=== PATIENT | female | born 2005 | race Caucasian/White ===

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

== ENCOUNTER 2024-02-14 18:18 | Emergency (ER) | payer BC, SELFPAY ==
[2024-02-14 18:26] VITALS: BP 114/66; PULSE 101; RESP 16; TEMP 36.8; O2SAT 99
--- NOTE | 2024-02-14 18:50 | ED.URI ---
HPI - URI/Sore Throat General Chief Complaint: Upper Respiratory Infection Stated Complaint: diarrhea/headache/body aches Time Seen by Provider: 02/14/24 18:36 Source: patient and RN notes reviewed Mode of arrival: ambulatory Limitations: no limitations History of Present Illness HPI Narrative: Patient presents today with a 2 day history of diarrhea, headache, body aches. She reports the diarrhea is better today than yesterday. Denies blood or mucus in the stool. Ports the headache is slightly worse. She did have some abdominal pain yesterday, but this has since mostly resolved. She has taken some antidiarrhea medication with relief. Denies upper respiratory symptoms to include cough, congestion, rhinorrhea, fever. No recent travel or known sick contacts. Related Data Home Medications Medication Instructions Recorded Confirmed No Home Medications 04/29/22 02/14/24 Allergies Allergy/AdvReac Type Severity Reaction Status Date / Time Penicillins Allergy Rash Verified 02/14/24 18:30 Review of Systems Review of Systems: CONSTITUTIONAL: Denies fever, chills, or sweats.+ body EYES: Denies visual changes, redness, or discharge. ENT: Denies rhinorrhea, congestion, sore throat, or otalgia. CARDIOVASCULAR: Denies chest pain, palpitations, or edema. RESPIRATORY: Denies cough or dyspnea. GASTROINTESTINAL: Denies abdominal pain, nausea, vomiting. + diarrhea GENITOURINARY: Denies dysuria or hematuria. SKIN: Denies rash, itching, or wounds. MUSCULOSKELETAL: Denies back pain, joint pain, or myalgia. NEUROLOGIC: Denies numbness, tingling, or weakness.+ headache PSYCH: Denies depression or anxiety. [facility] Past Medical History Medical History Depression Surgical History Surgical History No history of previous surgery Family History Family History Other No significant family history Social History Social History Smoking status: Never smoker Alcohol intake: never Substance use: never Living arrangements: with family Occupation/Education: student Gender identity (if verbalized by the patient): Female Comments At time of signature, I have reviewed and agree with nursing past medical, surgical, social and family history unless otherwise noted. Please see nursing chart for further information. There is no relevant family history pertinent to the presenting complaint Exam Narrative: GENERAL: Well-appearing, well-nourished, and in no acute distress. HEAD: Normocephalic, atraumatic. EYES: EOMI. No redness or drainage. Conjunctivae normal. ENT: Mucous membranes pink and moist. NECK: Normal AROM. Supple. No lymphadenopathy. CHEST: No respiratory distress. Clear to auscultation. HEART: Regular rate and rhythm. No murmur appreciated. ABDOMEN: Soft, nontender, nondistended, normal active bowel sounds. EXTREMITIES: Normal range of motion. No edema. SKIN: Warm, dry, no rash. Capillary refill normal. Normal skin turgor. NEURO: No focal deficits. Alert and oriented x3. Gait steady. PSYCH: Normal affect. No signs of depression or anxiety. Course Course Level of Care: Express Care Visit Vital Signs Vital signs: Vital Signs Temperature 98.2 F 02/14/24 18:26 Pulse Rate 101 H 02/14/24 18:26 Respiratory Rate 16 02/14/24 18:26 Blood Pressure 114/66 02/14/24 18:26 Pulse Oximetry 99 02/14/24 18:26 Oxygen Delivery Room Air 02/14/24 18:26 Temperature 98.2 F 02/14/24 18:26 Pulse Rate 101 H 02/14/24 18:26 Respiratory Rate 16 02/14/24 18:26 Blood Pressure 114/66 02/14/24 18:26 Pulse Oximetry 99 02/14/24 18:26 Oxygen Delivery Room Air 02/14/24 18:26 Reviewed MDM - URI/Sore Throat MDM Narrative Medical decision
[2024-02-14 19:00] LABS: EDINFLUASCREEN Negative; EDINFLUBSCREEN Negative
== END 2024-02-14 19:18 | disposition home or self-care (01) ==
PROVIDERS: Emergency Provider Nurse Practitioner
DX: R19.7 Diarrhea, unspecified (principal); Z20.822 Contact with and (suspected) exposure to COVID-19
CPT/HCPCS: 87426; 87804; 99213; G0463

== ENCOUNTER 2024-07-25 16:56 | Emergency (ER) | payer BC, SELFPAY ==
--- NOTE | 2024-07-25 16:57 | ED.FEMALEGU ---
HPI - Female Genitourinary General Chief complaint: Unspecified Stated complaint: test Time Seen by Provider: 07/25/24 17:05 Source: patient, RN notes reviewed and old records reviewed Mode of arrival: ambulatory Limitations: no limitations History of Present Illness HPI Narrative: 19-year-old female presents to the [facility] requesting a test. Reports last menstrual period was 2 weeks ago which she reports is normal. Took a home test yesterday, reports negative. States that is morning she took a test and had a partial faint line. Patient states that she has had unprotected sex, has felt nauseous and that is why she took a test Related Data Home Medications ?Medication ?Instructions ?Recorded ?Confirmed ?Last Taken ?Type No Home Medications 04/29/22 07/25/24 Unknown History Allergies Allergy/AdvReac Type Severity Reaction Status Date / Time Penicillins Allergy Rash Verified 07/25/24 17:03 Review of Systems Review of Systems: All systems reviewed & are unremarkable except as noted in HPI and below Constitutional: Constitutional: Reports no additional constitutional complaints ENT: Reports system reviewed and no additional complaints, except as documented Cardiovascular: Cardiovascular: Reports no additional cardiovascular complaints, Denies chest pain and Denies dyspnea Respiratory: Respiratory: Reports no additional respiratory complaints, Denies chest congestion, Denies cough and Denies dyspnea Musculoskeletal: Musculoskeletal: Reports no additional musculoskeletal complaints Integumentary/Breasts: Skin/Breast: Reports system reviewed and no additional complaints, except as docu PMFSH Past Medical History Medical History Depression Surgical History Surgical History No history of previous surgery Family History Family History Other No significant family history Social History Social History Smoking status: Never smoker Alcohol intake: never Substance use: never Living arrangements: with family Occupation/Education: student Gender identity (if verbalized by the patient): Female Comments At the time of my signature, I reviewed and agree with the nursing past medical, surgical, social, and family history. There is no relevant family history pertinent to the patient complaint. Exam Const: General: cooperative, healthy appearing, comfortable, no acute distress, well developed, alert and well nourished Nutritional Appearance: well nourished Orientation/consciousness: patient oriented x3 Limitations: no limitations HENMT: Head: normal to inspection Face and sinus: normal facial exam and face symmetric Eyes: General: appearance normal, both eyes and all related structures Neck: Neck: normal visual inspection, full ROM, no lymphadenopathy and no meningeal signs Chest: Chest palpation & inspection: normal inspection of the chest Resp: Effort & Inspection: normal respiratory effort and able to speak in complete sentences Cardio: Rate: regular rate Skin: General skin exam: normal color and no rashes or lesions noted Neuro: General: patient oriented x3, gait normal, moves all extremities and no meningeal signs Cognition (Neuro): normal cognition Speech: normal speech Gait exam (Neuro): Normal gait present Extrem: General: normal to inspection, full ROM, capillary refill normal and normal gait Psych: Appearance: grossly normal and well kempt Mental Status: mental status grossly normal Speech and movement: Normal speech and movement present and Clear speech present Affect: normal affect Attitude: cooperative Course Course Level of Care: Express Care Visit Vital Signs Vital signs: Vital Signs Temperature 99.1 F 07/25/24 17:01 Pulse Rate 95 07/25/24 17:01 Respiratory Rate 16 07/25/24 17:01 Blood Pressure 113/61 07/25/24 17:01 Pulse Oximetry 100 07/25/24 17:01 Oxygen Delivery Room Air 07/25/24 17:01 Temperature 99.1 F 07/25/24 17:01 Pulse Rate 95 07/25/24 17:01 Respiratory Rate 16 07/25/24 17:01 Blood Pressure 113/61 07/25/24 17:01 Pulse Oximetry 100 07/25/24 17:01 Oxygen Delivery Room Air 07/25/24 17:01 Reviewed MDM - Female Genitourinary MDM Narrative Medical decision making narrative: Patient is sitting in exam room. Nontoxic, vitals stable. Patient is in no acute distress. Patient presents requesting a test Urine test is negative Patient appropriate for outpatient treatment and follow-up Discharge instructions reviewed with patient, as well as provided in writing per nursing staff. The instructions also include specific and strict return/GO TO THE ER as well as f/u information. All questions have been answered, and the patient deny any further questions with discharge and discharge plan. Some parts of this dictation were generated by voice recognition software and may contain typographical and/or grammatical inaccuracies. Differential Diagnosis Differential diagnosis: Likely other Lab Data Labs: Lab Results 07/25/24 Range/Units 17:16 POC Urine HCG, Qual Negative (Negative) Reviewed Critical Care Time Critical Care Time Critical Care Time: No Discharge Plan Discharge Clinical Impression: Urine test negative Patient Disposition: Home, Self-Care Condition: Stable Instructions: Safe Sex Practices (ED) Additional Instructions: Today the urine test was negative in clinic Follow-up with primary care provider Patient Language: Faroese Prescriptions: No Action No Home Medications Follow-up/Referrals: UNKNOWN,DOCTOR [Non-Staff] - Time of Disposition: 17:14
[2024-07-25 17:01] VITALS: BP 113/61; PULSE 95; RESP 16; TEMP 37.3; O2SAT 100
[2024-07-25 17:17] LABS: BEDSIDEPREGUCG Negative (Negative)
== END 2024-07-25 17:17 | disposition home or self-care (01) ==
PROVIDERS: Emergency Provider Nurse Practitioner
DX: Z32.02 Encounter for pregnancy test, result negative (principal)
CPT/HCPCS: 81025; 99212; G0463

== ENCOUNTER 2025-05-19 18:21 | Emergency (ER) | payer SELFPAY ==
[2025-05-19 18:23] VITALS: BP 131/93; PULSE 92; RESP 18; TEMP 36.4; O2SAT 99
--- OUTSIDE RECORDS SUMMARY | 2025-05-19 18:25 | XMS_ITS | Clinical Summary ---
Author Organization [facility] Address [address] [place] [address] Care Team Providers Care Mannequin Maker Name Role Phone No, Physician Primary Care Provider [phone] Allergies No known active allergies Medications clotrimazole-be tamethasone (LOTRISONE) cream Apply to affected area 2 times daily prn 15 g 08/09/2020 Active diphenoxylate-a tropine (LOMOTIL) 2.5-0.025 mg per tabletIndicatio ns:diarrhea Take 1 tablet by mouth 4 (four) times a day as needed for diarrhea 20 tablet 05/30/2022 Active Medical History Medical History Date Comments Depression Anxiety Social History Tobacco Use Types Packs/Day Years Used Date Smoking Tobacco: Never Alcohol Use Standard Drinks/Week Comments Not Currently 0 (1 standard drink = 0.6 oz pur e alcohol) Personal Safety Answer Date Recorded Have you ever been in or are you currently in a harmful physical or emotional relationship or is someone making you feel afraid or unsafe? Denies 09/25/2023 Comments No Sex and Gender Information Value Date Recorded Sex Assigned at Not on file Legal Sex Female 5:54 AM [employer]IE[employer] MA[employer]GER Gender Identity Not on file Sexual Orientation Not on file Obstetrics History Last Filed Vital Signs Vital Sign Reading Time Taken Comments Blood Pressure 112/81 09/25/2023 6:22 PM [employer]IEU MA[employer]GER Pulse 86 09/25/2023 6:22 PM MILIEU MANAGER Temperature 36.9 C (98.4 F) 09/25/2023 6:22 PM MILIEU MANAGER Respiratory Rate 16 09/25/2023 6:22 PM MILIEU MANAGER Oxygen Saturation 100% 09/25/2023 6:22 PM MILIEU MANAGER Inhaled Oxygen Concentration - - Weight 49.9 kg (110 lb) 09/25/2023 6:22 PM MILIEU MANAGER Height 160 cm (5' 3) 09/25/2023 6:22 PM MILIEU MANAGER Body Mass Index 19.49 09/25/2023 6:22 PM MILIEU MANAGER Plan of Treatment Health Maintenance Due Date Last Done Comments Depression Screening 2004 Hepatitis C Screening 2004 Meningococcal B Vaccine (1 o f 2 - Standard) 2020 Regular Well Visit/Exam 18-64 2022 Influenza Vaccine (#1) 2025 , 06/03/2020, 04/25/2019, Additional history exists DTaP/Tdap/Td Vaccine (7 - Td or Tdap) 04/12/2026 04/12/2016, 03/18/2009, 08/15/2005, Additional history exists Hepatitis B Screening Completed 2004 , 2004, 2004 Pneumococcal vaccine <65 Completed 006, 05/15/2005, 2004, Additional history exists Varicella Vaccines Completed 03/21/2010, 05/15/2005 HPV Vaccines Completed 05/22/2017, 04/12/2016 Meningococcal Vaccine Completed 06/03/2020, 016 Insurance [facility] [place] Care Teams Mannequin Maker Relationship Specialty Start Date End Date No, Physician PCP - General 07/02/23
--- OUTSIDE RECORDS SUMMARY | 2025-05-19 18:25 | XMS_ITS | Clinical Summary ---
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 PM CDT Body Mass Index 19.49 04/09/2025 10:19 PM CDT Plan of Treatment Health Maintenance Due Date Last Done Comments Hepatitis C Virus (HCV) Screening 2004 Meningococcal B Immunization (1 of 2 - Standard) 2020 Influenza Immunization (#1) 2025 12/2 03/2021, 06/03/2020, 04/25/2019, Additional history exists SARS-COV-2 Immunization (1 - season) 2025 DTaP/Tdap/Td Immunization (7 - Td or Tdap) 04/12/2026 04/12/2016, 03/18/2009, 08/15/2005, Additional history exists Respiratory Syncytial Virus (RSV) Immunization (Adult) (1 - 1-dose 75+ series) 2079 Hepatitis B Immunization Completed 005, 2004, 2004 Pneumococcal Immunization Combined Aged Out 11/22/2005, 05/15/2005, 2004, Additional history exists No longer eligible based on patient's age to complete this topic Hepatitis A Immunization Discontinued 02/18/2008, 11/04 Polio (IPV) Immunization Discontinued 009, 2004, 2004, Additional history exists Measles Mumps Rubella (MMR) Immunization Discontinued 03/21/2010, 08/15/2005 Varicella Immunization Discontinued 03/21/2010, 2004 Human Papillomavirus (HPV) Immunization Completed 05/22/2017, 04/12/2016 Meningococcal Immunization (ACWY) Completed 06/03/2020, 04/12/2016 Rotavirus Immunization Aged Out No lo nger eligible based on patient's age to complete this topic
[2025-05-19 20:21] LABS: Alanine Aminotransferase 70 U/L (6-35); Albumin Level 3.9 g/dL (3.5-5.1); Alkaline Phosphatase 137 U/L (38-126); Anion Gap 9 mmol/L (4-12); Aspartate Amino Transferase 56 U/L (14-36); Bilirubin,Total 0.3 mg/dL (0.2-1.3); Blood Urea Nitrogen 12 mg/dL (7-17); Calcium 8.8 mg/dL (8.4-10.2); Carbon Dioxide 24 mmol/L (22-30); Chloride 103 mmol/L (98-107); Estimated CRCL calculation 123 ml/min; Estimated Glomerular Filt Rate > 60; Glucose 82 mg/dL (65-110); Magnesium 1.9 mg/dL (1.6-2.3); Potassium 3.8 mmol/L (3.4-5.0); Sodium 136 mmol/L (137-145); Total Protein 6.5 g/dL (6.3-8.2)
[2025-05-19 20:23] LABS: BEDSIDEPREGUCG Positive (Negative)
[2025-05-19 20:25] LABS: Hematocrit 37.8 % (37.0-47.0); Hemoglobin 12.7 g/dL (12.0-15.0); Immature Granulocyte Percent A 0.3 % (0-0.5); Lymphocytes Absolute Auto 1.00 K/mm3 (0.9-3.2); Mean Corpuscular HGB Conc 33.6 g/dl (32-36); Mean Corpuscular Hemoglobin 28.7 pg (26-34); Mean Corpuscular Volume 85.5 fl (80-100); Nucleated Red Blood Cells Absolute Auto 0.000 K/mm3 (0.0-0.012); Nucleated Red Blood Cells Perc 0.0 % (0.0-0.2); Platelet Count Result 193 k/mm3 (150-375); Red Blood Count 4.42 M/mm3 (4.2-5.4); White Blood Count 3.3 K/mm3 (4.5-10.0)
[2025-05-19 20:37] LABS: Add Urine Microscopic? YES; Appearance Urine Cloudy (Clear); Glucose Urine UA Negative (Negative); Leukocyte Esterase Ur 2+ LEU/UL (Negative); Need Manual Microscopic Reviewed; Nitrate Urine Negative (Negative); Specific Grav Ur 1.026 (1.001-1.035)
[2025-05-19 21:02] LABS: Beta HCG Quantitative 35629.00 mIU/ML
--- NOTE | 2025-05-19 21:34 | ED_ITS ---
HPI - Headache General Chief Complaint: Headache Stated Complaint: fatigue, headache, dizzy, possible Time Seen by Provider: 05/19/25 19:27 History of Present Illness HPI Narrative: 20-year-old female presenting to the emergency department with some nauseousness and dizziness as well as a headache. States her last menstrual period is 04/09/2025 and is currently with a OBGYN 1st appointment in 2 weeks. Her this is her 1st . Denies any vaginal pain, vaginal bleeding, discharge or fluids or any urinary complaints. No abdominal pain, fever, chills. She is eating and drinking in triage without difficulty. No vomiting here in the emergency department. Was otherwise in her normal state of health. Denies any substance use or alcohol use. Related Data Allergies Allergy/AdvReac Type Severity Reaction Status Date / Time Penicillins Allergy Rash Verified 07/25/24 17:03 Review of Systems 2 Review of Systems: As reviewed above in HPI PMFSH Past Medical History Medical History Depression Surgical History Surgical History No history of previous surgery Family History Family History Other No significant family history Social History Social History Smoking status: Never smoker Alcohol intake: never Substance use: never Living arrangements: with family Occupation/Education: student Gender identity (if verbalized by the patient): Female Exam 2 Narrative: GENERAL: [Well-appearing, well-nourished, and in no acute distress.] HEAD: [Normocephalic, atraumatic.] EYES: [PERRLA and EOMI.] ENT: Nares clear, no rhinorrhea or epistaxis. Mucous membranes moist. NECK: Supple. CHEST: [Clear to auscultation. No respiratory distress.] HEART: [Regular rate and rhythm]. No murmur heard. [Normal peripheral pulses.] ABDOMEN: [Soft, nondistended], [nontender], [No rigidity or guarding] EXTREMITIES: Normal range of motion. [No edema.] SKIN: Warm, dry, no rash. NEURO: [No focal deficits]. Alert and oriented [x3.] PSYCH: [Normal mood and affect.] Course Vital Signs Vital signs: Vital Signs Temperature 36.4 C 05/19/25 18:23 Pulse Rate 92 05/19/25 18:23 Respiratory Rate 18 05/19/25 18:23 Blood Pressure 131/93 H 05/19/25 18:23 Pulse Oximetry 99 05/19/25 18:23 Oxygen Delivery Room Air 05/19/25 18:23 Temperature 36.6 C 05/19/25 22:19 Pulse Rate 89 05/19/25 22:19 Respiratory Rate 17 05/19/25 22:19 Blood Pressure 126/89 05/19/25 22:19 Pulse Oximetry 99 05/19/25 22:19 Oxygen Delivery Room Air 05/19/25 18:23 MDM - Headache MDM Narrative Medical decision making narrative: 20-year-old female presenting to the emergency department with some nauseousness and dizziness as well as a headache. States her last menstrual period is 04/09/2025 and is currently with a OBGYN 1st appointment in 2 weeks. Her this is her 1st . Denies any vaginal pain, vaginal bleeding, discharge or fluids or any urinary complaints. No abdominal pain, fever, chills. She is eating and drinking in triage without difficulty. No vomiting here in the emergency department. Was otherwise in her normal state of health. Denies any substance use or alcohol use. Patient is otherwise well-appearing not any acute distress. No retching or nausea/vomiting during my encounter and evaluation. No tachycardia, fever, hypoxia or significant blood pressure elevations. Likely nonspecific gastroenteritis versus nausea vomiting in the setting of . No suspicion for active infection at this time but given her vague complaints blood work and urinalysis was obtained as well as a beta hCG level. Denies any vaginal bleeding or abdominal/pelvic pain. Workup shows a urinary infection although there is some contamination with squamous cells we will treat this empirically with Keflex given her status. Beta hCG is elevated, mildly elevated liver function panel and could be potentially related to her nausea or potential gastroenteritis. No elevated white blood cells or anemia. Patient was informed about her laboratory results and was not aware of any previous abnormalities. Patient is very early approximately 5-6 weeks so no current suspicion for presentation of preeclampsia but she will have to follow up with her OBGYN for repeat labs and evaluation. Patient given Reglan diphenhydramine and Keflex and re-evaluated. Safe for discharge and has OBGYN appointment on the 4th of next month. Patient's questions were answered and she was safe for discharge in given prescriptions for Keflex and Zofran as needed. Medical Records Attestation: I reviewed the patient's medical records. Lab Data Attestation: I reviewed the patient's lab results. 05/19/25 20:05 05/19/25 20:05 Labs: Lab Results 05/19/25 05/19/25 05/19/25 Range/Units 19:55 20:05 20:20 WBC 3.3 L (4.5-10.0) K/mm3 RBC 4.42 (4.2-5.4) M/mm3 Hgb 12.7 (12.0-15.0) g/dL Hct 37.8 (37.0-47.0) % MCV 85.5 (80-100) fl MCH 28.7 (26-34) pg MCHC 33.6 (32-36) g/dl RDW 13.0 (11.5-14.5) % Plt Count 193 (150-375) k/mm3 MPV 10.9 H (7.4-10.4) fl Immature Gran % (Auto) 0.3 (0-0.5) % Neut % (Auto) 58.4 (45.5-73.1) % Lymph % (Auto) 29.9 (18.3-44.2) % Brooks % (Auto) 10.5 H (2.6-8.5) % Eos % (Auto) 0.3 (0-4.4) % Baso % (Auto) 0.6 (0.2-1.2) % Lymph # (Auto) 1.00 (0.9-3.2) K/mm3 Brooks # (Auto) 0.4 (0.1-0.6) K/mm3 Eos # (Auto) 0.0 (0-0.3) K/mm3 Baso # (Auto) 0.0 (0.0-0.1) K/mm3 Abs Immat Gran (auto) 0.01 (0.00-0.031) K/mm3 Absolute Neuts (auto) 2.0 (1.3-6.7) K/mm3 Absolute Nucleated RBC 0.000 (0.0-0.012) K/mm3 Nucleated RBC % 0.0 (0.0-0.2) % Sodium 136 L (137-145) mmol/L Potassium 3.8 (3.4-5.0) mmol/L Chloride 103 (98-107) mmol/L Carbon Dioxide 24 (22-30) mmol/L Anion Gap 9 (4-12) mmol/L BUN 12 (7-17) mg/dL Creatinine 0.50 L (0.7-1.0) mg/dL Estim Creat Clear Calc 123 ml/min Estimated GFR > 60 (59 - ) Glucose 82 (65-110) mg/dL Calcium 8.8 (8.4-10.2) mg/dL Magnesium 1.9 (1.6-2.3) mg/dL Total Bilirubin 0.3 (0.2-1.3) mg/dL AST 56 H (14-36) U/L ALT 70 H (6-35) U/L Alkaline Phosphatase 137 H (38-126) U/L Total Protein 6.5 (6.3-8.2) g/dL Albumin 3.9 (3.5-5.1) g/dL Beta HCG, Quant 97120.00 mIU/ML Urine Color Yellow (Yellow) Urine Appearance Cloudy H (Clear) Urine pH 6.0 (5.0-9.0) Ur Specific [place] 1.026 (1.001-1.035) Urine Protein Trace (Negative) mg/dL Urine Glucose (UA) Negative (Negative) mg/dL Urine Ketones Negative (Negative) mg/dL Ur Blood (Man) Negative (Negative) Urine Nitrate Negative (Negative) Urine Bilirubin Negative (Negative) Urine Urobilinogen 1.0 (<2.0) mg/dL Add Ur Microanalysis Reviewed Leukocyte Esterase Rfl 2+ H (Negative) ARNULFO/UL Urine RBC 0-2 (0-2) /hpf Urine WBC 21-50 H (0-3) /hpf Ur Squamous Epith Cells Many H (Few) /hpf Urine Bacteria 3+ H /hpf Urine Casts 3-5 POC Urine HCG, Qual Positive (Negative) Discharge Plan Discharge Clinical Impression: Vomiting or nausea of , Elevated LFTs Patient Disposition: Home Condition: Stable Instructions: Antibiotic Form, Nausea and Vomiting in (ED) Additional Instructions: Your laboratory studies show no signs of dehydration or electrolyte abnormalities. There is some bacteria and white blood cells in your urine which will treat as a potential infection which could also explain some your symptoms. Your liver function panel shows some mild elevations but not significant at this time but does need to be followed up with with your PCP and OBGYN. Keep your OBGYN appointment. Return if you start developing abdominal pain abdominal discomfort, intractable nausea, vomiting, fever, vaginal bleeding or any other issues. Will prescribe antibiotics and nausea controlling medications as well. Patient Language: Indian Prescriptions: New cephalexin 500 mg capsule 500 mg PO Q12H 5 Days Qty: 10 0RF ondansetron 4 mg tablet,disintegrating 4 mg PO Q8H PRN (Reason: nausea and vomiting) Qty: 20 0RF Follow-up/Referrals: PHYSICIAN,P[employer]ACHINE [employer]ER [Primary Care Provider, Internal Medicine] Time of Disposition: 21:39
[2025-05-19] MEDS: METOCLOPRAMIDE HCL 5 MG TABLET PO (21:40)
[2025-05-19] MEDS: CEPHALEXIN 500 MG CAPSULE PO (21:40)
[2025-05-19] MEDS: diphenhydrAMINE HCl CAP 25 MG CAPSULE PO (21:42)
[2025-05-19 22:17] VITALS: BP 126/89; PULSE 89; RESP 17; TEMP 36.6; O2SAT 99
[2025-05-19 22:19] VITALS: BP 126/89; PULSE 89; RESP 17; TEMP 36.6; O2SAT 99
== END 2025-05-19 22:21 | disposition home or self-care (01) ==
PROVIDERS: Emergency Provider Student in an Organized Health Care Education/Training Program
DX: O21.9 Vomiting of pregnancy, unspecified (principal); O26.899 Other specified pregnancy related conditions, unspecified trimester; R79.89 Other specified abnormal findings of blood chemistry; Z3A.00 Weeks of gestation of pregnancy not specified
CPT/HCPCS: 36415; 80053; 81001; 81025; 83735; 84702; 85025; 99283; A9270